=== PATIENT | female | born 1995 | race Two or more races ===

== ENCOUNTER 2024-03-15 05:00 | Inpatient (IN) | payer OTHER ==
[2024-03-05 09:18] VITALS: BP 110/75
[~2024-03-15] VITALS: Ht 180.3 cm; Wt 74.4 kg
[2024-03-15] MEDS ORDERED: CEFAZOLIN SODIUM 1,000 MG VIAL ONE (06:41)
[2024-03-15] MEDS ORDERED: DEXAMETHASONE SODIUM PHOSPHATE 4 MG/ML VIAL ONE (07:27)
[2024-03-15] MEDS ORDERED: CEFAZOLIN SODIUM 1,000 MG VIAL IV ONE (09:00)
[2024-03-15] MEDS ORDERED: DEXAMETHASONE SODIUM PHOSPHATE 4 MG/ML VIAL IV ONE (09:00)
[2024-03-15] MEDS ORDERED: Calcium Carbonate 1 TAB TABLET PO SCH (10:28)
[2024-03-15] MEDS ORDERED: ACETAMINOPHEN 500 MG GEL..CAP PO SCH (10:29)
[2024-03-15] MEDS ORDERED: TRAMADOL HCL 50 MG TABLET PO SCH (10:29)
[2024-03-15] MEDS ORDERED: CYCLOBENZAPRINE HCL 5 MG TABLET PO SCH (10:29)
[2024-03-15] MEDS ORDERED: ONDANSETRON HCL 2 MG/ML VIAL IV PRN (10:30)
[2024-03-15] MEDS ORDERED: MORPHINE SULFATE 4 MG/ML VIAL IV ONE (11:10)
[2024-03-15 16:00] VITALS: BP 111/68; O2SAT 98
[2024-03-15] MEDS ORDERED: PANTOPRAZOLE SODIUM 40 MG/VIAL VIAL IV PUSH SCH (21:00)
[2024-03-16] VITALS: BP 99/65; O2SAT 95
[2024-03-16 08:00] VITALS: BP 128/74; O2SAT 96
[2024-03-16] MEDS ORDERED: LEVOTHYROXINE SODIUM 112 MCG TABLET PO SCH (09:00)
== END 2024-03-16 13:55 | disposition home or self-care (01) | DRG 627 ==
LOC: CIR.AMB 05:00 → O/R 11:28 → SURH 11:57
PROVIDERS: ADMIT Surgery; ATTEND Surgery
PROC: 0GTH4ZZ Resection of Right Thyroid Gland Lobe, Percutaneous Endoscopic Approach (ICD-10-PCS; principal; 2024-03-15 07:00)
DX: C73 Malignant neoplasm of thyroid gland (principal); E04.1 Nontoxic single thyroid nodule; Z20.822 Contact with and (suspected) exposure to COVID-19